=== PATIENT | female | born 2000 | race Caucasian/White ===

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

== ENCOUNTER 2020-01-22 09:00 | Outpatient (CLI) | payer MEDICAID ==
[2019-11-28 08:01] VITALS: BMI 38.0
[~2020-01-22 09:00] MED LIST: MACROBID100 MG PO; PRENAVITE1 TAB PO
[2020-01-22 11:06] LABS: UDS - AMPHET NEGATIVE QUAL (NEGATIVE); UDS - BARB NEGATIVE QUAL (NEGATIVE); UDS - BENZO NEGATIVE QUAL (NEGATIVE); UDS - COCAINE NEGATIVE QUAL (NEGATIVE); UDS - OPIATE NEGATIVE QUAL (NEGATIVE); UDS - PCP NEGATIVE QUAL (NEGATIVE); UDS - THC NEGATIVE QUAL (NEGATIVE)
[2020-01-22 11:07] LABS: BACTERIA MODERATE /hpf (NEGATIVE); BILIRUBIN NEGATIVE (NEGATIVE); EPITHELIAL CELLS 0-5 /hpf (0-5); GLUCOSE 1000 mg/dL (NEGATIVE); KETONE NEGATIVE (NEGATIVE); NITRITE NEGATIVE (NEGATIVE); RED CELLS - URINE RARE /hpf (0-5); SPECIFIC GRAVITY 1.025 (1.005-1.020); UROBILINOGEN NORMAL (NORMAL); WHITE CELLS - URINE 25-50 /hpf (NEGATIVE)
== END 2020-01-22 11:22 | disposition home or self-care (01) ==
LOC: D.LDO 09:00
PROVIDERS: ATTEND Obstetrics & Gynecology
DX: O26.893 Other specified pregnancy related conditions, third trimester (principal); Z3A.36 36 weeks gestation of pregnancy; R10.9 Unspecified abdominal pain; M54.9 Dorsalgia, unspecified

== ENCOUNTER 2020-02-07 05:05 | Inpatient (IN) | payer MEDICAID ==
[~2020-02-07] VITALS: Ht 157.5 cm; Wt 103.0 kg
[2020-02-07 05:31] VITALS: BP 138/82; Ht 157.5 cm; Wt 103.0 kg
[2020-02-07 07:19] LABS: HEMATOCRIT 34.2 % (36.0-48.0); HEMOGLOBIN 10.8 g/dL (12-16); MCH 27.1 pg (26.0-34.0); MCHC 31.6 g/dL (31.0-37.0); MCV 85.7 fL (80.0-100.0); MEAN PLATELET VOLUME 9.9 fL (7.4-10.4); RBC 3.99 10x6/uL (4.00-5.40); RDW 14.4 % (11.5-14.5)
[2020-02-07 07:25] LABS: BILIRUBIN NEGATIVE (NEGATIVE); GLUCOSE NEGATIVE (NEGATIVE); KETONE NEGATIVE (NEGATIVE); NITRITE NEGATIVE (NEGATIVE); UROBILINOGEN NORMAL (NORMAL)
[2020-02-07 07:33] LABS: BACTERIA MODERATE /hpf (NEGATIVE); RED CELLS - URINE 0-5 /hpf (0-5)
--- NOTE | 2020-02-07 18:10 | NUR ---
RECEIVED PT TO LABOR AND DELIVERY POST C/S FROM RR BY BED. PT HAS LARGE WHITE DRESSING TO ABDOMEN, FUNDUS FIRM, U/1, SMALL RUBRA LOCHIA, NO CLOTS NOTED. PT HAS JAMIL CATH DRAINING CLEAR YELLOW URINE. SCD'S ON, CURRENT PITOCIN BAG INFUSING OFF PUMP AT MODERATE RATE, AND SET TO PUMP BY Aminta KOO RN AT 125 ML/HR. PT HAS ICE PACK TO INCISION OVER GOWN. SRUP X 2, CALL LIGHT AND PHONE WITHIN REACH.
[2020-02-07 18:12] VITALS: BP 125/60
--- NOTE | 2020-02-07 18:30 | NUR ---
FUNDUS FIRM, U/1, SMALL RUBRA LOCHIA, NO CLOTS EXPELLED. PT SERVED ICE WATER TO DRINK, PT DENIES N/V, SOB OR DIFFICULTY BREATHING. SEE EMAR FOR ALL MEDS ADM BY THIS RN. SRUP X2, CALL LIGHT AND PHONE WITHIN REACH. PT'S MOTHER TO ROOM.
[2020-02-07 19:20] VITALS: BP 123/72
--- NOTE | 2020-02-07 19:45 | NUR ---
rec'd alert and oriented in bed, semifowlers, mother at bedside, moving all extremities, assessment completed see assessment notes, instructed on use of health care facility administrator pump for pain control, instructed on acceptable components of clear liquid diet. acknowledged understanding
--- NOTE | 2020-02-07 21:30 | NUR ---
pt alert and oriented, semifowlers, holding attempting to breastfeed. assisted w/ football hold and demonstrated how to wake baby w/ foot rubs, also demonstrated how to express colostrum, return demonstration successful. no needs voiced at this time
[2020-02-07 22:00] VITALS: BP 120/78
[2020-02-07 22:28] LABS: HEMATOCRIT 27.6 % (36.0-48.0); HEMOGLOBIN 8.8 g/dL (12-16); MCH 27.4 pg (26.0-34.0); MCHC 31.9 g/dL (31.0-37.0); PLATELET COUNT 223 10x3/uL (130-400); RBC 3.21 10x6/uL (4.00-5.40); RDW 14.5 % (11.5-14.5)
--- NOTE | 2020-02-07 22:28 | NUR ---
in room for wellness check, alert and oriented, fundal check u/-1, lochia scant, echo pads changed and echo care given, assisted w/ incentive spirometry, maintained at 1500 x 3 sec for 3 times. cough w/ minimal effort using pillow to splint abd. encouraged to use x 3 every hour while awake and to cough w/ final try. acknowledged understanding
[2020-02-07 22:37] LABS: EOSINOPHILS 3 % (0-7); LYMPHOCYTES 9 % (15-50); MONOCYTES 1 % (2-11); NEUTROPHILS 87 % (40-80); PLATELET ESTIMATE NORMAL
--- NOTE | 2020-02-07 23:27 | NUR ---
in room for wellness check, alert oriented, no needs voiced, holding in arms. ice water given, souza adjusted for better drainage, will continue to monitor output
[2020-02-08] VITALS (7 sets, daily range): BP systolic 113–124; BP diastolic 56–67
--- NOTE | 2020-02-08 01:28 | NUR ---
IN ROOM FOR WELLNESS CHECK, ALERT. STATES PAIN LEVEL IS 1, PIERCE CARE GIVEN, JAMIL EMPTIED, CONTINUE TO NOTE LOW OUTPUT BUT APPEARS TO BE GETTING CLEARER. PO FLUIDS GIVEN. C/O SORE THROAT. DENIES COUGH, BBS CLEAR AND EQUAL.
--- NOTE | 2020-02-08 03:30 | NUR ---
resting quietly w/ eyes closed respirations even and unlabored did not disturb
--- NOTE | 2020-02-08 04:06 | NUR ---
echo care given, pads changed, fundus firm,u/-1 lochia scant, admits to passing gas, abdomen soft, non distended
--- NOTE | 2020-02-08 05:30 | NUR ---
assisted w/ left breast football position, w/ audible swallow and good jaw movement, urine output improving in clear color and 125ml for 2 hour total, lr continues to infuse at 125ml/hr via left wrist. moving all extremities. hr tachycardic at 130 via spo2 monitor, apical hr verified at 130, pt denies pain, abd soft, lochia scant, abd dsg d/i, temp 98.7. will wait for cbc results and call dr wooten.
[2020-02-08 05:31] LABS: BASOPHILS 0.1 % (0-2); EOSINOPHILS 0.1 % (0-7); HEMATOCRIT 24.8 % (36.0-48.0); HEMOGLOBIN 7.8 g/dL (12-16); IMMATURE GRANULOCYTES 0.3 % (0-5); MCH 26.9 pg (26.0-34.0); MCHC 31.5 g/dL (31.0-37.0); MCV 85.5 fL (80.0-100.0); MONOCYTES 10.7 % (2-11); NEUTROPHILS 75.8 % (40-80); PLATELET COUNT 200 10x3/uL (130-400); RDW 14.7 % (11.5-14.5)
[2020-02-08 05:42] LABS: WBC 15.8 10x3/uL (4.8-10.8)
--- NOTE | 2020-02-08 05:56 | NUR ---
call to dr wooten, report given regarding pt tachy 120-135, uop improving at 60-70/hr, h/h down to 7.8/24.8, afebrile. orders rec'd to transfuse 2 u prbc.
[2020-02-08 06:08] LABS: RAPID PLASMA REAGIN Non Reactive (Non Reactive)
--- NOTE | 2020-02-08 06:24 | NUR ---
VITAL SIGNS TAKEN PRE-TRANSFUSION.
--- NOTE | 2020-02-08 06:32 | NUR ---
PIV SITED TO RIGHT HAND 20 G X 1 ATTEMPT, FLUSHED W/ NS. TOLERATED WELL
--- NOTE | 2020-02-08 06:35 | NUR ---
PT NAME,,BLOOD BANK WRIST BAND,BLOOD TYPE,BLOOD UNIT # AND EXPIRATION ALL VERIFIED WITH TAMARARN AT THIS TIME. BLOOD TRANSFUSION STARTED VIA ALARIS PUMP @50ML/HR. S/S OF BLOOD TRANSFUSION REACTION RELAYED TO PT AND PT VERBALIZES UNDERSTANDING
--- NOTE | 2020-02-08 07:19 | NUR ---
RECEIVED PT SITTING UP IN BED. HOLDING INFANT WITH MUCH WARMTH SHOWN. AWAKE. AAO X 3. VSS. HRRR WITHOUT AUDIBLE MURMUR. BBS CLEAR. BS HYPOACTIVE. ABDOMEN PALPATES SOFT/NON-DISTENDED. ABDOMINAL DRESSING DRY WITHOUT DRAINAGE NOTED. FUNDUS FIRM AT U/1. RUBRA LOCHIA SMALL AMT. NO CLOTS NOTED. NEG HOMANS' SIGN. PPP. 2+/2+ EDEMA NOTED TO BLE. SCDS ON BLE. PUMP ON. JAMIL TO GRAVITY DRAINING DARK, YELLOW URINE. PIV TO LEFT WRIST INFUSING LR AT 125 ML/HR. SITE CLEAR. PIV TO RIGHT HAND INFUSING PACKED RBCS AT 150 ML/HR. SITE CLEAR. PT STATES C/O INCISIONAL PAIN OF "6" ON 0-10 PAIN SCALE. DILAUDID [employer] WORKER INFUSING WITH LR ORDERED. PT STATES PASSING GAS. DENIES C/O OR NEEDS. FRESH ICE PACK TO INCISION. SR UP X 2. CALL LIGHT IN REACH.
--- NOTE | 2020-02-08 07:36 | NUR ---
DR MENDOZA VISITS WITH PT.
--- NOTE | 2020-02-08 08:02 | NUR ---
REGULAR DIET SERVED. PLACED IN OPEN CRIB. PT PACKED RBC INFUSION INCREASED TO 250 ML/HR. PIV SITE CLEAR.
--- NOTE | 2020-02-08 08:47 | NUR ---
FIRST UNIT OF PACKED RBC'S COMPLETED. NS INFUSING TO FLUSH LINE. PIV SITE CLEAR.
--- NOTE | 2020-02-08 09:16 | NUR ---
Y-TUBING CHANGED. NS TO FLUSH LINE. SECOND UNIT PACKED RBC'S VERIFIED AND MATCHED WITH Bethel FERNANDEZ RN. RATE STARTED AT 125 ML/HR. PIV SITE CLEAR. VSS.
--- NOTE | 2020-02-08 09:24 | NUR ---
PT REPOSITIONS UP IN BED PER SELF AFTER MUCH ENCOURAGEMENT. PLACED IN MOM'S ARMS FOR FEEDING.
--- NOTE | 2020-02-08 10:56 | NUR ---
SECOND UNIT OF PACKED RBC'S COMPLETED. NS INFUSING TO FLUSH LINE. PIV SITE CLEAR. VSS.
--- NOTE | 2020-02-08 11:51 | NUR ---
PIV TO RIGHT HAND CONVERTED TO SALINE LOCK. FLUSHES EASILY WITH NS. PIV TO LEFT WRIST CONVERTED TO SALINE LOCK AND FLUSHED EASILEY WITH NS. SITES CLEAR. JAMIL DC'D WITH 950 ML OF DARK, YELLOW URINE NOTED IN BAG. PT RAZIA WELL. INCISION OPEN TO AIR. JENNIFER INTACT. NO REDNESS, SWELLING OR DRAINAGE NOTED. PERIPAD TO INCISION TO KEEP DRY AND MONITOR DRAINAGE. PT INSTRUCTED ON CARE OF INCISION. VERBALIZES UNDERSTANDING.
--- NOTE | 2020-02-08 13:00 | NUR ---
PT OOB AND AMB TO BR. VOIDS 400 ML OF BLOOD-TINGED URINE. PERICARE DONE. PANTIES AND PAD ON. GOWN CHANGED. PT TOLERATES ACTIVITY WELL.
--- NOTE | 2020-02-08 13:08 | NUR ---
PT BACK TO BED. TOLERATES ACTIVITY WELL. C/O INCISIONAL/ABDOMINAL PAIN OF "7" ON 0-10 PAIN SCALE. MOTRIN 600 MG AND NORCO 10/325 GIVEN PO ORDERED. PT INSTRUCTED ON MEDS. VERBALIZES UNDERSTANDING.
[2020-02-08 14:29] LABS: BASOPHILS 0.1 % (0-2); EOSINOPHILS 0.1 % (0-7); IMMATURE GRANULOCYTES 0.5 % (0-5); LYMPHOCYTES 10.8 % (15-50); MCH 27.5 pg (26.0-34.0); MCHC 31.5 g/dL (31.0-37.0); MCV 87.3 fL (80.0-100.0); MEAN PLATELET VOLUME 9.7 fL (7.4-10.4); MONOCYTES 8.3 % (2-11); NEUTROPHILS 80.2 % (40-80); PLATELET COUNT 205 10x3/uL (130-400); RDW 14.9 % (11.5-14.5); WBC 14.7 10x3/uL (4.8-10.8)
[2020-02-08 14:30] LABS: HEMATOCRIT 31.7 % (36.0-48.0); RBC 3.63 10x6/uL (4.00-5.40)
--- NOTE | 2020-02-08 14:37 | NUR ---
PT SITTING UP IN BED. VISITS WITH MOM. DENIES NEEDS OR C/O. STATES ABOUT TO GET UP AND AMBULATE IN HALLS.
--- NOTE | 2020-02-08 15:05 | NUR ---
PT AMBULATORY IN HALLS AT THIS TIME. TOLERATING ACTIVITY WELL.
--- NOTE | 2020-02-08 16:45 | NUR ---
PT SITTING UP IN BED. VISITS WITH MOTHER, LAUGHING AND SMILING. PT DENIES NEEDS OR C/O.
--- NOTE | 2020-02-08 16:50 | NUR ---
450 ML OF BLOOD-TINGED URINE EMPTIED FROM SPECIPAN.
--- NOTE | 2020-02-08 16:59 | NUR ---
DR MENDOAZ CALLS. CBC RESULTS REPORTED.
--- NOTE | 2020-02-08 19:10 | NUR ---
PT ASSESSED IN BED SITTING HIGH FOWLERS, SEE SHIFT ASSESSMENT, NOTED HR 105, VERRIFIED APPICALLY, RR, INCISION W/A JENNIFER INTACT, EMPTIED 400ML CLEAR YELLOW URINE. INFORMED ADEQUATE OUTPUT AND NO FURTHER NEED TO MEASURE UOP. NO NEEDS VOICED. ASSISTED W/ LATCH TO LEFT BREAST.
--- NOTE | 2020-02-08 20:45 | NUR ---
ROOM CHECK, PT RESTING W/ EYES CLOSED, RESPIRATIONS EVEN AND UNLABORED. MOTHER AT BS. DID NOT DISTURB
--- NOTE | 2020-02-08 21:52 | NUR ---
room check, awake and alert, w/o c/o pain or discomfort, states is getting up to the restroom, shower gel given and amy for evening shower
--- NOTE | 2020-02-08 22:06 | NUR ---
to room for c/o pain, medicated per order. states feeling burning pain in incision area when walking. rates 06/03. will monitor for improvement
[2020-02-09 01:10] VITALS: BP 133/62
--- NOTE | 2020-02-09 01:40 | NUR ---
in room to assist w/ , latch w/ nipple shield to left breast, noted cracked area on left nipple and bleeding with expression. vss. hr 106
--- NOTE | 2020-02-09 03:45 | NUR ---
in room for wellness check, resting quietly w/ eyes closed, respirations even and unlabored. did not disturb
[2020-02-09 05:54] VITALS: BP 135/79
--- NOTE | 2020-02-09 05:55 | NUR ---
to room for c/o incisional pain, medicated per orders, sitting up high fowlers in bed preparing to breasfeed, saline loc right hand removed at pt request, site covered w/ bandaid
[2020-02-09 07:48] VITALS: BP 118/62
--- NOTE | 2020-02-09 07:48 | NUR ---
PT SITTING UP IN BED. AAO X 3. VSS. HRRR WITHOUT AUDIBLE MURMUR. BBS CLEAR. BS X 4. ABDOMEN SOFT/NON-DISTENDED. FUNDUS FIRM AT U/1. RUBRA LOCHIA SMALL AMT. NO CLOTS. PT STATES HAS PASSED CLOTS THE SIZE OF QUARTER. PT INSTRUCTED TO NOTIFY NURSE OF PASSING CLOTS TO VIEW. PT VERBALIZES UNDERSTANDING. ABDOMINAL INCISION WITH JENNIFER. NO REDNESS, SWELLING OR DRAINAGE NOTED. NEG HOMANS' SIGN. PPP. MILD NON-PITTING EDEMA NOTED TO BLE. SL TO LEFT WRIST. SITE CLEAR. PT STATES C/O INCISIONAL/ABDOMINAL PAIN. DECLINES PAIN MED AT THIS TIME. SR UP X 2. CALL LIGHT IN REACH.
--- NOTE | 2020-02-09 08:43 | NUR ---
PT CALLS ON LIGHT. REQUESTS AND RECEIVES NORCO 10/325 PO ORDERED. PT INSTRUCTED ON MED. VERBALIZES UNDERSTANDING.
--- NOTE | 2020-02-09 10:00 | NUR ---
PT LYING IN SEMIFOWLER'S POSITION IN BED. WAKES UPON ENTERING ROOM. DENIES C/O OR NEEDS.
--- NOTE | 2020-02-09 11:00 | NUR ---
DR MENDOZA ON PHONE. STATES WILL ROUND ON PT TODAY.
--- NOTE | 2020-02-09 12:04 | NUR ---
DR MENDOZA VISITS WITH PT.
[2020-02-09] MEDS ORDERED: MOTRIN600 MG PO (12:25)
[2020-02-09] MEDS ORDERED: HYDROCODON-ACE1 EA10 PO (12:25)
--- NOTE | 2020-02-09 14:11 | NUR ---
PT C/O ABDOMINAL PAIN OF "6" ON 0-10 PAIN SCALE. NORCO 10/325 AND MOTRIN 600 MG GIVEN PO ORDERED. PT INSTRUCTED ON MEDS. VERBALIZES UNDERSTANDING.
--- NOTE | 2020-02-09 14:30 | NUR ---
DISCHARGE INSTRUCTIONS GIVEN TO PT. PT VERBALIZES UNDERSTANDING OF ALL INSTRUCTIONS. COPIES GIVEN TO PT. PT GIVEN RX OF NORCO 10/325 AND MOTRIN 600 MG. SL TO LEFT WRIST DC'D WITH CATHELON INTACT. PRESSURE BANDAGE TO SITE. PT PREPARES FOR DISCHARGE.
--- NOTE | 2020-02-09 15:00 | NUR ---
PT READY FOR DISCHARGE. DISCHARGED WITH IN STABLE CONDITION VIA WHEELCHAIR TO PRIVATE VEHICLE.
== END 2020-02-09 15:00 | disposition home or self-care (01) | DRG 788 ==
LOC: D.LD 05:05
PROVIDERS: ADMIT Obstetrics & Gynecology; ATTEND Obstetrics & Gynecology
PROC: 10D00Z1 Extraction of Products of Conception, Low, Open Approach (ICD-10-PCS; principal; 2020-02-07 15:00)
DX: O99.344 Other mental disorders complicating childbirth (principal); F32.9 Major depressive disorder, single episode, unspecified; Z3A.39 39 weeks gestation of pregnancy; Z37.0 Single live birth; O34.03 Maternal care for unspecified congenital malformation of uterus, third trimester; Q51.3 Bicornate uterus; O70.0 First degree perineal laceration during delivery; O62.1 Secondary uterine inertia; O75.9 Complication of labor and delivery, unspecified; R00.0 Tachycardia, unspecified

== ENCOUNTER 2020-02-13 06:52 | Emergency (ER) | payer MEDICAID ==
[~2020-02-13] VITALS: Ht 157.5 cm; Wt 95.5 kg
[~2020-02-13 06:52] MED LIST changes: +HYDROCODON-ACE1 EA10 PO; +MOTRIN600 MG PO
[2020-02-13 06:59] VITALS: Ht 157.5 cm; Wt 95.5 kg
[2020-02-13 07:30] LABS: BASOPHILS 0.1 % (0-2); EOSINOPHILS 0.9 % (0-7); HEMATOCRIT 27.8 % (36.0-48.0); HEMOGLOBIN 8.8 g/dL (12-16); IMMATURE GRANULOCYTES 0.4 % (0-5); MCH 27.2 pg (26.0-34.0); MCHC 31.7 g/dL (31.0-37.0); MCV 86.1 fL (80.0-100.0); MEAN PLATELET VOLUME 8.2 fL (7.4-10.4); MONOCYTES 7.9 % (2-11); NEUTROPHILS 79.7 % (40-80); RBC 3.23 10x6/uL (4.00-5.40); RDW 15.1 % (11.5-14.5); WBC 11.4 10x3/uL (4.8-10.8)
[2020-02-13 07:45] LABS: PLATELET COUNT 311 10x3/uL (130-400)
[2020-02-13 07:50] VITALS: BP 121/79
[2020-02-13 07:51] LABS: CALC OSMOLALITY 276 mosm/kg (275-300); CALCIUM 7.8 mg/dL (8.5-10.1); CARBON DIOXIDE 23.6 mmol/L (21.0-32.0); CHLORIDE - SERUM 107 mmol/L (98-107); CREATININE - SERUM 0.7 mg/dL (0.6-1.3); GLUCOSE 105 mg/dL (74-106); POTASSIUM - SERUM 4.1 mmol/L (3.5-5.1); SODIUM 140 mmol/L (136-145); UREA NITROGEN 8 mg/dL (7-18); eGFR NON AFRICAN AMERICAN > 90 mL/min (90-120)
[2020-02-13 07:59] LABS: ALBUMIN 2.2 g/dL (3.4-5.0); ALKALINE PHOSPHATASE 143 U/L (30-120); ALT (SGPT) 24 U/L (10-68); BILIRUBIN - TOTAL 0.17 mg/dL (0.2-1.3); PROTEIN - SERUM 5.4 g/dL (6.4-8.2)
[2020-02-13 08:09] LABS: BACTERIA FEW /hpf (NEGATIVE); BILIRUBIN NEGATIVE (NEGATIVE); EPITHELIAL CELLS 0-5 /hpf (0-5); GLUCOSE NEGATIVE (NEGATIVE); KETONE NEGATIVE (NEGATIVE); NITRITE NEGATIVE (NEGATIVE); RED CELLS - URINE >50 /hpf (0-5); SPECIFIC GRAVITY 1.015 (1.005-1.020); WHITE CELLS - URINE 0-5 /hpf (NEGATIVE)
[2020-02-13] MEDS ORDERED: MACROBID100 MG PO (08:18)
== END 2020-02-13 08:26 | disposition home or self-care (01) ==
LOC: D.ER 06:52
PROVIDERS: Family Medicine
DX: O90.81 Anemia of the puerperium (principal); N30.01 Acute cystitis with hematuria